=== PATIENT | female | born 1945 | race Caucasian/White ===

== ENCOUNTER 2017-06-05 16:56 | Emergency (ER) | payer MEDICARE, OTHER ==
[~2017-06-05] VITALS: Ht 154.9 cm; Wt 49.9 kg
[2017-06-05] MEDS ORDERED: AMLODIPINE BESYL5 M1 PO (17:18)
[2017-06-05] MEDS ORDERED: ECOTRIN325 MG PO (17:18)
[2017-06-05] MEDS ORDERED: COUMADIN 5 MG TA5 M1 PO (17:18)
[2017-06-05] MEDS ORDERED: PAXIL10 MG PO (17:19)
[2017-06-05] MEDS ORDERED: ZYRTEC10 M5 PO (17:19)
[2017-06-05] MEDS ORDERED: BONIVA150 MG PO (17:19)
[2017-06-05] MEDS ORDERED: LIPITOR 20 MG T20 M1 PO (17:19)
[2017-06-05] MEDS ORDERED: OMEPRAZOLE 20 M20 M1 PO (17:20)
[2017-06-05] MEDS ORDERED: FLONASE ALLERG9.9 ML NASAL (17:20)
[2017-06-05] MEDS ORDERED: KLOR-CON 1010 MEQ PO (17:20)
[2017-06-05] MEDS ORDERED: BENECALORI7.5 KCAL/1 PO (17:20)
[2017-06-05] MEDS ORDERED: DICYCLOMINE HCL20 MG PO (17:21)
[2017-06-05] MEDS ORDERED: TIMOPTIC5 ML INTRAOCULR (17:21)
[2017-06-05] MEDS ORDERED: TRAMADOL 50 MG50 MG PO (17:21)
[2017-06-05] MEDS ORDERED: AMBIEN 5 MG TABL5 M1 PO (17:22)
[2017-06-05] MEDS ORDERED: HYDROCODONE-AP1 EAC6 PO (19:54)
[2017-06-05 20:57] VITALS: BP 172/88
== END 2017-06-05 21:01 | disposition home or self-care (01) ==
LOC: M.ERS 16:56
DX: S82.092A Other fracture of left patella, initial encounter for closed fracture (principal); S82.55XA Nondisplaced fracture of medial malleolus of left tibia, initial encounter for closed fracture; I10 Essential (primary) hypertension; K58.9 Irritable bowel syndrome, unspecified; Z88.5 Allergy status to narcotic agent; Z88.8 Allergy status to other drugs, medicaments and biological substances; W01.198A Fall on same level from slipping, tripping and stumbling with subsequent striking against other object, initial encounter; Y93.89 Activity, other specified; Y92.89 Other specified places as the place of occurrence of the external cause; Y99.8 Other external cause status

== ENCOUNTER → 2017-06-14 | Outpatient (CLI) | payer MEDICARE, OTHER ==
[~2017-06-14] MED LIST: AMBIEN 5 MG TABL5 M1 PO; AMLODIPINE BESYL5 M1 PO; BENECALORI7.5 KCAL/1 PO; BONIVA150 MG PO; COUMADIN 5 MG TA5 M1 PO; DICYCLOMINE HCL20 MG PO; ECOTRIN325 MG PO; FLONASE ALLERG9.9 ML NASAL; HYDROCODONE-AP1 EAC6 PO; KLOR-CON 1010 MEQ PO; LIPITOR 20 MG T20 M1 PO; OMEPRAZOLE 20 M20 M1 PO; PAXIL10 MG PO; TIMOPTIC5 ML INTRAOCULR; TRAMADOL 50 MG50 MG PO; ZYRTEC10 M5 PO
== END ==
LOC: M.CT 11:30
DX: S82.145A Nondisplaced bicondylar fracture of left tibia, initial encounter for closed fracture (principal); S82.452A Displaced comminuted fracture of shaft of left fibula, initial encounter for closed fracture; M17.12 Unilateral primary osteoarthritis, left knee; I70.0 Atherosclerosis of aorta; X58.XXXA Exposure to other specified factors, initial encounter; Y93.89 Activity, other specified; Y92.89 Other specified places as the place of occurrence of the external cause; Y99.8 Other external cause status

== ENCOUNTER → 2017-10-17 | Outpatient (CLI) | payer MEDICARE, OTHER | LOC: M.RAD 13:30 | DX: M81.0 Age-related osteoporosis without current pathological fracture (principal); Z78.0 Asymptomatic menopausal state ==

== ENCOUNTER → 2017-11-29 | Outpatient (CLI) | payer MEDICARE, OTHER | LOC: M.RAD 13:20 | DX: Z12.31 Encounter for screening mammogram for malignant neoplasm of breast (principal); I10 Essential (primary) hypertension ==

== ENCOUNTER → 2018-04-10 | Outpatient (CLI) | payer MEDICARE, OTHER | LOC: M.ULTRA 12:59 | DX: I70.293 Other atherosclerosis of native arteries of extremities, bilateral legs (principal); K52.89 Other specified noninfective gastroenteritis and colitis; R23.0 Cyanosis ==

== ENCOUNTER → 2018-12-17 | Outpatient (CLI) | payer MEDICARE, OTHER | LOC: M.RAD 10:30 | DX: Z12.31 Encounter for screening mammogram for malignant neoplasm of breast (principal) ==

== ENCOUNTER → 2020-01-29 | Outpatient (CLI) | payer MEDICARE, OTHER | LOC: M.RAD 11:00 | PROVIDERS: ATTEND Family Medicine | DX: Z12.31 Encounter for screening mammogram for malignant neoplasm of breast (principal) ==

== ENCOUNTER → 2020-03-09 | Outpatient (CLI) | payer MEDICARE, OTHER | LOC: M.RAD 03-02 10:00 | PROVIDERS: ATTEND Family Medicine | DX: M81.0 Age-related osteoporosis without current pathological fracture (principal) ==

== ENCOUNTER → 2021-04-27 | Outpatient (CLI) | payer MEDICARE, OTHER | LOC: M.RAD 11:00 | PROVIDERS: ATTEND Family Medicine | DX: Z12.31 Encounter for screening mammogram for malignant neoplasm of breast (principal) ==